=== PATIENT | female | born 1995 | race Caucasian/White ===

== ENCOUNTER 2018-02-10 15:06 | Emergency (ER) | payer OTHER ==
[~2018-02-10] VITALS: Ht 160 cm; Wt 56.7 kg
--- NOTE | 2018-02-10 15:35 | NUR ---
Dr Castillo at the bedside for MSE.
[2018-02-10] MEDS ORDERED: NALOXONE HCL 0.4 MG/ML AMPUL ONE ×2 (15:40→15:43)
[2018-02-10] MEDS ORDERED: IV NS 1000 ML 1,000 ML IV ONE (15:45)
[2018-02-10] MEDS ORDERED: NALOXONE HCL 0.4 MG/ML AMPUL IV ONE ×2 (16:00)
[2018-02-10 16:10] LABS: BASOPHILS % (AUTO) 0.5 % (0.0-2.0); EOSINOPHILS # (AUTO) 0.3 K/uL (0.0-0.7); EOSINOPHILS % (AUTO) 2.9 % (0.0-7.0); HEMATOCRIT 38.5 % (31.2-41.9); LYMPHOCYTES # (AUTO) 1.8 K/uL (20.0-40.0); LYMPHOCYTES % (AUTO) 19.8 % (20.5-51.5); MEAN CORPUSCULAR HEMOGLOBIN 29.6 uug (24.7-32.8); MEAN CORPUSCULAR HGB CONC 34 g/dL (32.3-35.6); MEAN CORPUSCULAR VOLUME 87.8 fL (75.5-95.3); MONOCYTES # (AUTO) 0.6 K/uL (2.0-10.0); MONOCYTES % (AUTO) 6.7 % (0.0-11.0); NEUTROPHILS # (AUTO) 6.2 K/uL (1.8-8.9); NEUTROPHILS % (AUTO) 70.1 % (38.5-71.5); PLATELET COUNT (AUTO) 250 K/uL (179-408); RED BLOOD CELL COUNT(AUTO) 4.39 MIL/uL (3.63-4.92); WHITE BLOOD COUNT (AUTO) 8.9 K/uL (3.8-11.8)
[2018-02-10 16:15] LABS: CREATININE 0.7 mg/dL (0.6-1.3); POTASSIUM 4.6 mmol/L (3.5-5.1)
[2018-02-10 16:21] LABS: BILIRUBIN,TOTAL 0.3 mg/dL (0.2-1.0); TOTAL PROTEIN, SERUM 7.3 g/dL (6.4-8.2)
--- NOTE | 2018-02-10 17:14 | NUR ---
IV removed. Catheter intact and site benign. Pressure and 4x4 gauze applied to site. No bleeding noted.
--- NOTE | 2018-02-10 17:31 | NUR ---
Patient discharged to home in stable conditon. Written and verbal after care instructions given. Patient verbalizes understanding of instructions. Pt left Er w/ steady gait.
[2018-02-10 17:32] VITALS: BP 123/77
== END 2018-02-10 17:36 | disposition home or self-care (01) ==
LOC: ER 15:08
DX: T40.601A Poisoning by unspecified narcotics, accidental (unintentional), initial encounter (principal); Z88.0 Allergy status to penicillin
CPT/HCPCS: 36415; 70030-TC; 71045; 84703; 85025; 85610; A4663; J2310; J7030

== ENCOUNTER 2020-12-13 20:53 | Emergency (ER) | payer OTHER ==
[~2020-12-13] VITALS: Ht 160 cm; Wt 53.1 kg
[2020-12-13] MEDS ORDERED: TDAP DIPH,PERTUSS,TET VAC/PF 0.5 ML DISP.SYRIN IM ONE ×2 (22:00→22:03)
--- NOTE | 2020-12-13 22:00 | NUR ---
Patient in room with
[2020-12-13] MEDS ORDERED: CEPH500C2 PO (22:02)
[2020-12-13] MEDS ORDERED: CEphaleXIN 500 MG CAPSULE ONE (22:13)
[2020-12-13] MEDS ORDERED: CEphaleXIN 500 MG CAPSULE PO ONE (22:15)
[2020-12-13] MEDS ORDERED: BACITRACIN ZINC OINT 15 GM TUBE ONE (22:31)
--- NOTE | 2020-12-13 22:41 | NUR ---
Patient discharged to home in stable condition. Written and verbal after care instructions given. Patient verbalizes understanding of instructions. Stressed follow up or return to ER for worsening s/s. Patient had palpable pulse and feeling/warmth in injured finger and distal to injury. Belongings with patient.
[2020-12-13 22:42] VITALS: BP 110/61
== END 2020-12-13 22:40 | disposition home or self-care (01) ==
LOC: ER 20:55
DX: S61.012A Laceration without foreign body of left thumb without damage to nail, initial encounter (principal); W25.XXXA Contact with sharp glass, initial encounter; Y92.89 Other specified places as the place of occurrence of the external cause
CPT/HCPCS: 12002; 90471; 90715; 99283; J3490; A4217; A4663